=== PATIENT | female | born 1990 | race African-American/Black ===

== ENCOUNTER 2023-03-25 09:07 | Outpatient (CLI) | payer OTHER, MEDICAID, SELFPAY ==
[2023-03-25 09:42] LABS: Basophils Percent Auto 0.3 % (0.2-1.2); Eosinophils Absolute Auto 0.5 K/mm3 (0-0.3); Eosinophils Percent Auto 6.4 % (0-4.4); Hematocrit 32.8 % (37.0-47.0); Hemoglobin 10.2 g/dL (12.0-15.0); Immature Granulocyte Absolute 0.03 K/mm3 (0.00-0.031); Immature Granulocyte Percent A 0.4 % (0-0.5); Lymphocytes Absolute Auto 1.66 K/mm3 (0.9-3.2); Lymphocytes Percent Auto 23.7 % (18.3-44.2); Mean Corpuscular HGB Conc 31.1 g/dl (32-36); Mean Corpuscular Hemoglobin 23.8 pg (26-34); Mean Corpuscular Volume 76.6 fl (80-100); Mean Platelet Volume 10.2 fl (7.4-10.4); Monocytes Absolute Auto 0.4 K/mm3 (0.1-0.6); Monocytes Percent Auto 5.3 % (2.6-8.5); Neutrophils Absolute Auto 4.5 K/mm3 (1.3-6.7); Neutrophils Percent Auto 63.9 % (45.5-73.1); Platelet Count Result 212 k/mm3 (150-375); Red Blood Count 4.28 M/mm3 (4.2-5.4); Red Cell Distribution Width 16.4 % (11.5-14.5)
[2023-03-25 10:29] LABS: Hepatitis B Surface Antigen Negative (Negative)
[2023-03-25 10:34] LABS: HIV 1/2 Ab P24 Ag Result Negative (Negative)
[2023-03-25 11:00] LABS: Rubella IgG Antibody > 110.0 IU/ML
[2023-03-28 11:48] LABS: Rapid Plasma Reagin Non-Reactive (NonReactive)
[2023-03-30 14:01] LABS: Varicella IgG Antibody >4000.00 Index (>=165.00)
== END 2023-03-25 09:08 | disposition home or self-care (01) ==
PROVIDERS: Visit Provider Student in an Organized Health Care Education/Training Program
DX: N94.89 Other specified conditions associated with female genital organs and menstrual cycle (principal)
CPT/HCPCS: 36415; 84702; 85025; 85660; 86592; 86644; 86703; 86747; 86762; 86787; 86850; 86900; 86901; 87086; 87340; G0432

== ENCOUNTER 2024-09-26 13:28 | Outpatient (CLI) | payer OTHER, SELFPAY ==
--- NOTE | ~2024-09-26 | MMUS_ITS ---
EXAMINATION: US breast BI complete, MM diagnostic tamela BI w ulysses HISTORY: Bilateral breast pain. TECHNIQUE: Additional 3-D tomosynthesis images of the breasts were performed and synthetic 2-D images were generated. CAD analysis was submitted and interpreted. High resolution bilateral complete breas t ultrasound was performed. COMPARISON: No prior studies for comparison. BREAST PARENCHYMAL COMPOSITION: Dense: The breasts are extremely dense, which lowers the sensitivity of mammography. FINDINGS: MAMMOGRAPHIC FINDINGS: There are no suspicious masses, calcifications or architectural distortion in either breast to sugges t malignancy. ULTRASOUND: Complete US of all 4 quadrants of the breast/s and retroareolar region was reviewed. Right breast: At 11:00, 2 cm from the nipple there is an oval hypoechoic mass measuring 6 x 6 x 3 mm with echogenic cleft, no posterior features and no internal vascularity, likely benign. Left breast: Normal heterogeneous echotexture without focal solid or cystic mass. IMPRESSION: 1. Probable benign right breast mass at 11:00, 2 cm from the nipple. 2. Recommend 6 month follow-up Limited right breast ultrasound BI-RADS category 3, probably benign findings. Reviewed, dictated and finalized at location B. [facility] IMPRESSION: 1. Probable benign right breast mass at 11:00, 2 cm from the nipple. 2. Recommend 6 month follow-up Limited right breast ultrasound BI-RADS category 3, probably benign findings.
== END 2024-09-26 13:29 | disposition home or self-care (01) ==
LOC: ANHIMG 13:29
PROVIDERS: PCP Internal Medicine; Visit Provider Obstetrics & Gynecology
DX: R92.8 Other abnormal and inconclusive findings on diagnostic imaging of breast (principal); N63.21 Unspecified lump in the left breast, upper outer quadrant; N63.10 Unspecified lump in the right breast, unspecified quadrant; N63.20 Unspecified lump in the left breast, unspecified quadrant
CPT/HCPCS: 76641; 77062; 77066; G0279

== ENCOUNTER 2025-05-30 09:24 | Outpatient (CLI) | payer OTHER, SELFPAY ==
--- NOTE | ~2025-05-30 | US_ITS ---
US breast RT limited 05/30/2025 09:43 Indication: Palpable right breast lump Procedure: High-resolution Limited ultrasound of the right breast Comparison: 09/26/2024 Findings: At 11:00, 2 cm from the nipple there is an irregular shaped hypoechoic mass measuring 7 mm with echogenic hilum, unchanged from prior examination allowing for differences of technique. No inte rnal vascularity or posterior features. There is parallel orientation and circumscribed margins. Impression: 1: Stable benign-appearing right breast mass at 11:00, 2 cm from the nipple. BI-RADS CATEGORY 3-PROBABLY BENIGN FINDING RECOMMENDATION: Six-month follow-up bilateral mammogram and Limited right breast ultrasound recommend ed. Reviewed, dictated and finalized at location B. Impression: 1: Stable benign-appearing right breast mass at 11:00, 2 cm from the nipple. BI-RADS CATEGORY 3-PROBABLY BENIGN FINDING RECOMMENDATION: Six-month follow-up bilateral mammogram and Limited right breas t ultrasound recommended.
== END 2025-05-30 09:25 | disposition home or self-care (01) ==
LOC: ANHIMG 09:28
PROVIDERS: PCP Internal Medicine; Visit Provider Obstetrics & Gynecology
DX: N63.13 Unspecified lump in the right breast, lower outer quadrant (principal); N63.21 Unspecified lump in the left breast, upper outer quadrant
CPT/HCPCS: 76642